=== PATIENT | male | born 1995 | race Two or more races ===

== ENCOUNTER 2022-08-05 15:59 | Inpatient (IN) | payer OTHER ==
[~2022-08-05] VITALS: Ht 172.7 cm; Wt 76.0 kg
[2022-08-05] MEDS ORDERED: SODIUM CHLORIDE 0.9% 1,000 ML IV ONE (17:30)
[2022-08-05 18:32] LABS: Basophils # (auto) 0 10 ^3/uL (0-0.2); Basophils % (auto) 0.1 % (0.0-2.0); Eosinophils # (auto) 0 10 ^3/uL (0-0.8); Eosinophils % (auto) 0.1 % (0.0-7.0); Hematocrit 45.2 % (41.0-53.0); Hemoglobin 15.5 g/dL (13.5-17.5); Lymphocytes # (auto) 0.6 10 ^3/uL (0.4-5.4); Lymphocytes % (auto) 4.1 % (10.0-50.0); Mean Corpuscular Hemoglobin 32.1 pg (28.0-32.0); Mean Corpuscular Hgb Conc. 34.2 g/dL (32.0-36.0); Mean Corpuscular Volume 93.8 fL (80.0-100.0); Monocytes # (auto) 0.9 10 ^3/uL (0-1.3); Monocytes % (auto) 6.5 % (0.0-12.0); Neutrophils # (auto) 12.3 10 ^3/uL (1.6-8.6); Neutrophils % (auto) 89.2 % (37.0-80.0); Nucleated Red Blood Cells % 0.1 %; Red Blood Cells 4.82 10^6/uL (4.5-5.90); Red Cell Distribution Width 12.1 % (11.8-14.3); White Blood Cell 13.8 10^3/uL (4.4-10.8)
[2022-08-05 18:39] LABS: Albumin 3.3 g/dL (3.4-5.0); Anion Gap 10 (5-15); Blood Alcohol < 3.0 mg/dL (0-5); Blood Urea Nitrogen 20 mg/dL (7-18); Calcium 7.2 mg/dL (8.5-10.1); Carbon Dioxide 19 mmol/L (21-32); Chloride 113 mmol/L (98-107); Glucose 102 mg/dL (74-106); Potassium 4.4 mmol/L (3.5-5.1); Sodium 142 mmol/L (136-145)
[2022-08-05 18:56] LABS: Alanine Aminotransferase 8642 U/L (16-61); Alkaline Phosphatase 89 U/L (45-117); BUN/Creatinine Ratio 9.7 (10.0-20.0); Bilirubin, Total 1.4 mg/dL (0.2-1.0); GFR African American 50 mL/min; GFR Non-African American 41 mL/min; Total Protein 6.5 g/dL (6.4-8.2)
[2022-08-05] MEDS ORDERED: ONDANSETRON HCL 4 MG/2 ML VIAL IV ONE (20:00)
[2022-08-05 20:04] LABS: Aspartate Aminotransferase 10975 U/L (15-37)
[2022-08-05 20:32] LABS: Hepatitis B Surface Antibody Negative (Negative)
[2022-08-05 21:44] LABS: Hepatitis C Antibody Negative (Negative)
[2022-08-06 01:02] LABS: INR 1.58 (0.9-1.15)
[2022-08-06] MEDS ORDERED: NITROGLYCERIN 0.4 MG SL TAB SL PRN (01:15)
[2022-08-06] MEDS ORDERED: DOCUSATE SOD 100 MG CAP PO PRN (01:15)
[2022-08-06] MEDS ORDERED: MORPHINE SULFATE INJ 2 MG/ml SYRG IV PRN (01:15)
[2022-08-06] MEDS ORDERED: ONDANSETRON HCL 4 MG/2 ML VIAL IV PRN (01:15)
[2022-08-06] MEDS ORDERED: SODIUM CHLORIDE 0.9% 1,000 ML IV SCH (01:15)
[2022-08-06 01:41] LABS: Urine Amorphous Crystal MOD /hpf (None Seen); Urine Bacteria FEW /hpf (None Seen); Urine Blood 3+ /uL (Negative); Urine Mucus FEW (None Seen); Urine Specific Gravity 1.024 (1.001-1.035); Urine Sperm PRESENT /hpf (None Seen); Urine WBC 4 /hpf (0 - 3)
[2022-08-06 01:55] LABS: Alcohol, Urine < 3.0 mg/dL (0-10); Amphetamine Screen, Urine POSITIVE (NEGATIVE); Barbiturate Scree,Urine NEGATIVE (NEGATIVE); Benzodiazephine Screen, Urine NEGATIVE (NEGATIVE); Cannabinoid Screen, Urine POSITIVE (NEGATIVE); Cocaine Screen, Urine NEGATIVE (NEGATIVE); Phencyclidine Screen, Urine NEGATIVE (NEGATIVE)
[2022-08-06 02:02] LABS: Opiate Scree,Urine NEGATIVE (NEGATIVE)
[2022-08-06] MEDS: SODIUM CHLORIDE 0.9% 1,000 ML IV SCH ×3 (07:41→23:30)
[2022-08-06] MEDS ORDERED: ALBUTEROL SULF 2.5 MG/0.5ML(0.5%) NEB SOLN NEB PRN (10:30)
[2022-08-06] MEDS: PANTOPRAZOLE 40 MG/10 ML VIAL INJ IV SCH (11:04)
[2022-08-06 12:33] VITALS: BP 116/77
[2022-08-06] MEDS: PIPERACILLIN-TAZOB 3.375GM 100 ML IV SCH ×2 (13:33→21:16)
[2022-08-06 14:17] LABS: Albumin 3.5 g/dL (3.4-5.0); Calcium 8.2 mg/dL (8.5-10.1); Potassium 3.3 mmol/L (3.5-5.1)
[2022-08-06 14:53] LABS: BUN/Creatinine Ratio 9.8 (10.0-20.0); Bilirubin, Total 1.5 mg/dL (0.2-1.0); Total Protein 6.1 g/dL (6.4-8.2)
[2022-08-06] MEDS: ACETAMINOPHEN 325 MG TAB PO PRN (15:52)
[2022-08-06 16:17] VITALS: BP 109/71
[2022-08-06 19:35] LABS: Protein, Urine 234.2 mg/dL (0.0-11.9)
[2022-08-06 20:00] VITALS: BP 111/73
[2022-08-07] VITALS (7 sets, daily range): BP systolic 98–114; BP diastolic 56–75
[2022-08-07] MEDS: PIPERACILLIN-TAZOB 3.375GM 100 ML IV SCH ×3 (05:25→21:17)
[2022-08-07 07:35] LABS: Albumin 3.5 g/dL (3.4-5.0); Calcium 8.4 mg/dL (8.5-10.1); Potassium 3.7 mmol/L (3.5-5.1)
[2022-08-07 07:52] LABS: Basophils # (auto) 0 10 ^3/uL (0-0.2); Basophils % (auto) 0.3 % (0.0-2.0); Eosinophils # (auto) 0.2 10 ^3/uL (0-0.8); Eosinophils % (auto) 3.5 % (0.0-7.0); Hematocrit 42.7 % (41.0-53.0); Hemoglobin 15.4 g/dL (13.5-17.5); Lymphocytes # (auto) 0.5 10 ^3/uL (0.4-5.4); Lymphocytes % (auto) 7.7 % (10.0-50.0); Mean Corpuscular Volume 91.7 fL (80.0-100.0); Monocytes # (auto) 0.2 10 ^3/uL (0-1.3); Neutrophils % (auto) 85.5 % (37.0-80.0); Nucleated Red Blood Cells % 0.2 %; Red Blood Cells 4.65 10^6/uL (4.5-5.90); Red Cell Distribution Width 12.3 % (11.8-14.3)
[2022-08-07 08:02] LABS: BUN/Creatinine Ratio 7.4 (10.0-20.0); Total Protein 5.9 g/dL (6.4-8.2)
[2022-08-07] MEDS: SODIUM CHLORIDE 0.9% 1,000 ML IV SCH ×3 (12:47→23:30)
[2022-08-07] MEDS: PANTOPRAZOLE 40 MG/10 ML VIAL INJ IV SCH (12:51)
[2022-08-07] MEDS: ACETAMINOPHEN 325 MG TAB PO PRN (16:43)
[2022-08-07] MEDS: LACTULOSE 20Gm/30ML SOLN PO SCH (21:17)
[2022-08-08 05:00] VITALS: BP 112/69
[2022-08-08] MEDS: PIPERACILLIN-TAZOB 3.375GM 100 ML IV SCH ×3 (05:27→21:45)
[2022-08-08 06:31] LABS: Basophils # (auto) 0 10 ^3/uL (0-0.2); Basophils % (auto) 0.5 % (0.0-2.0); Eosinophils # (auto) 0.6 10 ^3/uL (0-0.8); Eosinophils % (auto) 11.3 % (0.0-7.0); Hemoglobin 14.9 g/dL (13.5-17.5); Lymphocytes # (auto) 1.2 10 ^3/uL (0.4-5.4); Mean Corpuscular Hemoglobin 32.7 pg (28.0-32.0); Mean Corpuscular Volume 89.8 fL (80.0-100.0); Monocytes # (auto) 0.3 10 ^3/uL (0-1.3); Monocytes % (auto) 4.8 % (0.0-12.0); Neutrophils # (auto) 3.6 10 ^3/uL (1.6-8.6); Neutrophils % (auto) 62.4 % (37.0-80.0); Nucleated Red Blood Cells % 0.2 %; Red Blood Cells 4.56 10^6/uL (4.5-5.90); Red Cell Distribution Width 12.4 % (11.8-14.3); White Blood Cell 5.7 10^3/uL (4.4-10.8)
[2022-08-08 06:59] LABS: Mean Corpuscular Hgb Conc. 35.4 g/dL (32.0-36.0)
[2022-08-08 07:11] LABS: Albumin 3.5 g/dL (3.4-5.0); Calcium 8.8 mg/dL (8.5-10.1)
[2022-08-08 07:30] LABS: BUN/Creatinine Ratio 7.5 (10.0-20.0); Bilirubin, Total 3.5 mg/dL (0.2-1.0); Potassium 3.6 mmol/L (3.5-5.1); Total Protein 5.4 g/dL (6.4-8.2)
[2022-08-08] MEDS: SODIUM CHLORIDE 0.9% 1,000 ML IV SCH ×3 (07:30→23:30)
[2022-08-08 07:58] VITALS: BP 109/63
[2022-08-08 09:00] VITALS: BP 110/55
[2022-08-08] MEDS: LACTULOSE 20Gm/30ML SOLN PO SCH ×2 (10:00→21:45)
[2022-08-08] MEDS: PANTOPRAZOLE 40 MG/10 ML VIAL INJ IV SCH (11:07)
[2022-08-08 12:40] VITALS: BP 102/61
[2022-08-08 16:43] VITALS: BP 108/57
[2022-08-08] MEDS: ACETAMINOPHEN 325 MG TAB PO PRN (21:48)
[2022-08-09] MEDS: PIPERACILLIN-TAZOB 3.375GM 100 ML IV SCH (05:35)
[2022-08-09 05:40] VITALS: BP 115/95
[2022-08-09] MEDS: SODIUM CHLORIDE 0.9% 1,000 ML IV SCH (07:30)
[2022-08-09 08:00] VITALS: BP 109/63
[2022-08-09 09:00] VITALS: BP 101/61
[2022-08-09] MEDS: PANTOPRAZOLE 40 MG/10 ML VIAL INJ IV SCH (09:39)
[2022-08-09] MEDS: LACTULOSE 20Gm/30ML SOLN PO SCH (09:39)
[2022-08-09] MEDS ORDERED: LACT10SO3 PO (10:54)
[2022-08-09 13:00] VITALS: BP 97/51
== END 2022-08-09 14:30 | disposition home or self-care (01) | DRG 816 ==
LOC: ER 15:59 → EDBD 15:59 → TELE 08-06 01:12 → TELE-WESTW 08-06 10:02
PROVIDERS: ADMIT Internal Medicine; ATTEND Internal Medicine
DX: T40.1X1A Poisoning by heroin, accidental (unintentional), initial encounter (principal); N17.0 Acute kidney failure with tubular necrosis; G92.8 Other toxic encephalopathy; K76.9 Liver disease, unspecified; F19.10 Other psychoactive substance abuse, uncomplicated; M62.82 Rhabdomyolysis; F11.90 Opioid use, unspecified, uncomplicated; E87.6 Hypokalemia; N05.1 Unspecified nephritic syndrome with focal and segmental glomerular lesions; J45.909 Unspecified asthma, uncomplicated; K76.0 Fatty (change of) liver, not elsewhere classified; R91.1 Solitary pulmonary nodule; K52.9 Noninfective gastroenteritis and colitis, unspecified; Z91.148 Patient's other noncompliance with medication regimen for other reason; Y92.89 Other specified places as the place of occurrence of the external cause
CPT/HCPCS: 36415; 70450; 74177; 80053; 80307; 80320; 80329; 81001; 82140; 82550; 82570; 84156; 85025; 85610; 85652; 86308; 86706; 86803; 87340; C9113; G0378; J2405; J2543